=== PATIENT | female | born 1955 | race African-American/Black ===

== ENCOUNTER 2017-09-14 13:36 | Inpatient (IN) | payer SELFPAY ==
[2017-09-14 14:12] LABS: Bilirubin Negative (Negative); Blood, Urine Negative (Negative); Clarity CLEAR (Clear); Glucose, Urine (Dipstick) Negative (Negative); Leukocyte Small (Negative); Nitrite Negative (Negative); Protein, Urine (Dipstick) Negative (Neg-Trace); Specific Gravity, Urine 1.011 (1.002-1.036); pH, Urine 5.5 (5.0-9.0)
[2017-09-14 14:14] LABS: Bacteria/HPF None Seen HPF (None Seen); Hyaline Casts/LPF 4-6 HYALINE CAST LPF (0-3 Hyaline); Pathc Cast-AUWi Flag 1.16 (0-2.49); RBC/HPF 0-3 HPF (0-3); Squamous Epithelial 0-3 HPF (0-3)
[2017-09-14 14:23] LABS: Medtox Reader # READER 1
[2017-09-14 14:24] LABS: Amphetamine Not Detected (NotDetected); Barbiturates Screen Not Detected (NotDetected); Benzodiazepine Screen Not Detected (NotDetected); Cocaine Metabolite Screen Not Detected (NotDetected); Medtox Control Line Valid? VALID (VALID); Methadone Not Detected (NotDetected); Methamphetamine Not Detected (NotDetected); Opiate Screen Not Detected (NotDetected); Oxycodone Screen Not Detected (NotDetected); Phencyclidine (PCP) Not Detected (NotDetected); THC/Cannabinoid Screen Detected (NotDetected); Tricyclic Screen Not Detected (NotDetected)
[2017-09-14 14:48] LABS: #Basophils 0.1 thou/uL (0.0-0.2); #Eosinphils 0.2 thou/uL (0.0-0.7); #Lymphocytes 2.2 thou/uL (1.20-3.40); #Monocytes 0.6 thou/uL (0.11-0.59); #Neutrophils 4.5 thou/uL (1.40-6.50); %Basophils 1.1 % (0.0-1.0); %Eosinophils 2.7 % (0.0-10.0); %Lymphocytes 28.9 % (21.0-51.0); %Monocytes 7.4 % (0.0-10.0); %Neutrophils 60.1 % (42.0-75.0); Hemoglobin 16.3 g/dL (12.0-16.0); Mean Corpuscular HGB CONC 33.8 g/dL (32.0-36.0); Mean Corpuscular Volume 91.8 fL (78.0-98.0); Mean Platelet Volume 9.1 fL (7.4-10.4); Platelet Count 183 thou/uL (130-400); RBC Distribution Width 13.8 % (11.5-14.5); Red Blood Cell (RBC) Count 5.24 mill/uL (4.20-5.40); White Blood Cell (WBC) Count 7.5 thou/uL (4.8-10.8)
[2017-09-14 15:09] LABS: Acetaminophen Less than 6.0 mcg/mL (10.0-30.0); Alcohol Less than 10 mg/dL (Less than 10); Salicylate Less than 8.0 mg/dL (15.0-30.0)
[2017-09-14 15:15] LABS: ALT (SGPT) 66 U/L (8-55); AST (SGOT) 76 U/L (5-34); Alkaline Phosphatase 79 U/L (40-150); Anion Gap 15 mmol/L (10-20); BUN (Urea Nitrogen) 15 mg/dL (9.8-20.1); Calc. Creatinine Clearance 0 mL/min (70-130); Calcium 9.7 mg/dL (7.8-10.44); Carbon Dioxide 20 mmol/L (23-31); Chloride 107 mmol/L (98-107); Estimated GFR-MDRD 44; Globulin 5.6 g/dL (2.4-3.5); Glucose 76 mg/dL (80-115); Potassium 3.7 mmol/L (3.5-5.1); Protein, Total 9.6 g/dL (6.0-8.3); Sodium 138 mmol/L (136-145)
[2017-09-14] MEDS ORDERED: Diltiazem HCl 125 MG, Admixture Fee 1 EACH in Sodium Chloride 0.9% 100 ML IVPB SCH ×2 (16:15→17:45)
[2017-09-14 17:24] LABS: CKMB 3.6 ng/mL (0-6.6); Troponin I 0.052 ng/mL (< 0.028)
[2017-09-14 18:06] LABS: CKMB 3.5 ng/mL (0-6.6); Troponin I 0.064 ng/mL (< 0.028)
[2017-09-14 20:46] LABS: Troponin I 0.071 ng/mL (< 0.028)
[2017-09-14] MEDS ORDERED: Milk Of Magnesia 30 ML UDCUP PO PRN (22:09)
[2017-09-14] MEDS ORDERED: Acetaminophen 325 MG TAB PO PRN (22:09)
[2017-09-14 22:28] VITALS: BMI 31.9
[2017-09-14] MEDS ORDERED: Enoxaparin Sodium 100 MG/ML SYRINGE SC SCH (22:45)
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
[2017-09-15 05:54] LABS: Anion Gap 12 mmol/L (10-20); BUN (Urea Nitrogen) 17 mg/dL (9.8-20.1); Calc. Creatinine Clearance 75 mL/min (70-130); Calcium 8.6 mg/dL (7.8-10.44); Carbon Dioxide 23 mmol/L (23-31); Chloride 109 mmol/L (98-107); Estimated GFR-MDRD 62; Glucose 103 mg/dL (80-115); Potassium 3.4 mmol/L (3.5-5.1); Sodium 141 mmol/L (136-145)
[2017-09-15] MEDS: Diltiazem 125 MG in Sodium Chloride 0.9% 100 ML IVPB SCH ×2 (06:01→19:53)
[2017-09-15 06:19] LABS: Band 1 % (5-11); Eosinophils 7 % (0-10); Hemoglobin 13.9 g/dL (12.0-16.0); Lymphocytes 43 % (21-51); MDiff Complete? YES; Mean Corpuscular HGB CONC 33.7 g/dL (32.0-36.0); Mean Corpuscular Hemoglobin 30.9 pg (27.0-31.0); Mean Corpuscular Volume 91.5 fL (78.0-98.0); Mean Platelet Volume 10.1 fL (7.4-10.4); Monocytes 10 % (0-10); Neutrophil 39 % (42-75); PLT Morphology Comment Appears Adequate; Platelet Count 149 thou/uL (130-400); RBC Distribution Width 13.7 % (11.5-14.5); RBC Morphology Normal; White Blood Cell (WBC) Count 5.7 thou/uL (4.8-10.8)
[2017-09-15] MEDS: Famotidine 20 MG TAB PO SCH ×2 (08:09→19:52)
[2017-09-15] MEDS: Enoxaparin Sodium 100 MG/ML SYRINGE SC SCH ×2 (08:10→19:52)
[2017-09-15] MEDS ORDERED: Enoxaparin Sodium 80 MG/0.8 ML SYRINGE SC SCH (09:00)
--- NOTE | 2017-09-15 09:30 | PDOC.PN ---
- Subjective Encounter Start Date: 09/15/17 Encounter Start Time: 09:28 Ms. Herrera was seen in follow-up of Afutter, and depression and rash. She says she feels a little better. No new complaints. - Objective Resuscitation Status: Resuscitation Status FULL:Full Resuscitation MAR Reviewed: Yes Vital Signs & Weight: Vital Signs (12 hours) Temp Pulse Resp BP Pulse Ox 09/15/17 08:03 98.5 F 107 H 16 146/86 H 96 09/15/17 08:00 98.5 F 107 H 16 98 09/15/17 04:18 98.7 F 100 18 103/83 96 09/15/17 00:14 97.5 F L 78 17 117/74 96 09/14/17 23:48 109 H 09/14/17 21:50 97.5 F L 78 17 131/90 98 Weight Weight 192 lb I&O: 09/14/17 09/15/17 09/16/17 06:59 06:59 06:59 Intake Total 82 Balance 82 Result Diagrams: 09/15/17 04:56 09/15/17 04:55 Phys Exam - Physical Examination HEENT: PERRLA Respiratory: no wheezing, no rales, no rhonchi, clear to auscultation bilateral Cardiovascular: RRR, no significant murmur, no rub Gastrointestinal: soft, non-tender, positive bowel sounds Musculoskeletal: edema present + trace pedal edema of the lower extremities, and a scaly raised rash Neurological: non-focal Dx/Plan (1) Atrial flutter Code(s): I48.92 - UNSPECIFIED ATRIAL FLUTTER Status: Acute (2) Dermatitis Code(s): L30.9 - DERMATITIS, UNSPECIFIED Status: Acute (3) Depression with suicidal ideation Code(s): F32.9 - MAJOR DEPRESSIVE DISORDER, SINGLE EPISODE, UNSPECIFIED; R45.851 - SUICIDAL IDEATIONS Status: Acute - Plan * Atrial flutter- she continues with a variable heart rate on the Cardizem drip * Echo is pending as well as Cardiology evaluation * Continue Lovenox * Dermatitis- ? etiology- rudolph try a steroid ointment/cream- and will need outpatient evaluation * Depression with suicidal ideation- will continue suicide precautions, Zoloft, and will need [facility] evaluation at discharge.
[2017-09-15] MEDS ORDERED: Potassium Chloride 20 MEQ TAB PO SCH (09:45)
--- NOTE | 2017-09-15 11:27 | CON ---
DATE OF SERVICE: 09/15/2017 REASON FOR CONSULTATION: Atrial flutter. HISTORY OF PRESENT ILLNESS: Mrs. Herrera is a pleasant 62-year-old female who comes to the hospital for feeling lightheaded. She has been very depressed for the last 6-9 months. She u sed to have a house, but her son who own the house suddenly sold it and she was left without a place to live, went to live with her sister who eventually got evicted. She then went to live with her bro ther who left her when she was a child, so she is having a lot of problems there, so she feels suicid al. She is actually planning on taking her life. She does not have plan just yet, but she really do es want to live. She has also been feeling lightheaded for the last few weeks and was found to be in atrial flutter with 2:1 AV block, heart rate in the 150s. She was started on diltiazem drip and is better rate controlled now. She is also on full anticoagulation with subcu Lovenox. PAST MEDICAL HISTORY: None. PAST SURGICAL HISTORY: None. OUTPATIENT MEDICATIONS: None. ALLERGIES: No known drug allergies. SOCIAL HISTORY: Smokes half pack a day for the last 30 years. Drinks about 1-2 beers a day, single with 2 kids. FAMILY HISTORY: Diabetes and heart failure in mother. REVIEW OF SYSTEMS: A 12-point review of systems was done and is negative unless stated in history of present illness or below. She has generalized rash that she has been dealing with for the last few months as well. PHYSICAL EXAMINATION: VITAL SIGNS: Temperature 98.5, pulse 107, respiration rate 16, satting 96% on room air, blood pressu re 146/86. GENERAL: Awake, alert, and oriented x3, in no distress. HEENT: Normocephalic, atraumatic. NECK: Supple. LUNGS: Clear. CARDIOVASCULAR: S1, S2, irregularly irregular, heart rate in 90s-100s. ABDOMEN: Soft, positive bowel sounds. EXTREMITIES: 1+ edema. SKIN: Warm and dry. There are several skin lesions. Scaly type lesions. LABORATORY WORK: Reviewed. CBC is unremarkable. Her hemoglobin was 16 on arrival, 13 now. Telephone Services Sales Representative ry with normal sodium and potassium, and her potassium since dropped to 3.4. Her creatinine went fro m 1.2-1.09, GFR of 62. Troponin was indeterminate range 0.05, 0.06, and 0.07. Albumin of 4.0. TSH is normal. UA with trace ketones, small amount of leukocyte esterase, white cells and a urine drug screen was positive for marijuana use. ASSESSMENT AND PLAN: 1. Atrial flutter. 2. Skin rash. 3. Homelessness. 4. Suicidal ideation. 5. Depression. PLAN: CHADS-VASc score is actually 0 currently, this would favor aspirin for stroke prophylaxis. I would most likely prefer that she undergo more conservative approach given her limitations and care t hat she will have once she leaves the hospital. We will plan on doing a NICOLE cardioversion. Hopefull y, she will not have any blood clots that will require blood thinning and if there was no thrombus an d we were able to give her a shock, I would favor just keeping her on aspirin afterwards as I think t here is a high possibility that she may use the blood thinners as part of her suicidal plan. I am al so concerned that she may use the antiarrhythmics for the same reason. I would probably just keep he r on a calcium channel edgar or just beta edgar once she is cardioverted back to sinus rhythm. O therwise, continue rate control for now. Continue full anticoagulation with Lovenox for now. Thank you for letting us participate in the care of your patient. We will follow.
[2017-09-15] MEDS: diphenhydrAMINE 25 MG CAP PO PRN ×2 (19:52)
[2017-09-16] MEDS: Aspirin 81 mg Enteric Coated Tablet PO SCH (08:56)
[2017-09-16] MEDS: Famotidine 20 MG TAB PO SCH ×2 (08:56→20:58)
[2017-09-16] MEDS: Enoxaparin Sodium 100 MG/ML SYRINGE SC SCH ×2 (08:57→20:57)
[2017-09-16] MEDS: Diltiazem 125 MG in Sodium Chloride 0.9% 100 ML IVPB SCH ×2 (09:02→23:21)
--- NOTE | 2017-09-16 09:56 | PDOC.PN ---
- Subjective Encounter Start Date: 09/16/17 Encounter Start Time: 09:54 Subjective: feeling better, itching all over, feeling sad but denies suicidality - Objective Resuscitation Status: Resuscitation Status FULL:Full Resuscitation MAR Reviewed: Yes Vital Signs & Weight: Vital Signs (12 hours) Temp Pulse Resp BP Pulse Ox 09/16/17 08:40 99.1 F 87 17 166/81 H 97 09/16/17 03:40 98.4 F 84 20 168/90 H 95 09/15/17 22:40 98.3 F 84 20 160/89 H 96 Weight Weight 191 lb 14.4 oz I&O: 09/15/17 09/16/17 09/17/17 06:59 06:59 06:59 Intake Total 82 580 Output Total 1450 Balance 82 -870 Result Diagrams: 09/15/17 04:56 09/15/17 04:55 Phys Exam - Physical Examination HEENT: PERRLA, moist MMs, sclera anicteric, TM's clear, oral pharynx no lesions , 2+ tonsils Neck: no nodes, no JVD, supple, full ROM Respiratory: no wheezing, no rales, no rhonchi, wheezing present, clear to auscultation bilateral Cardiovascular: RRR, no significant murmur, no rub, gallop, irregular Gastrointestinal: soft, non-tender, no distention, positive bowel sounds Musculoskeletal: no edema, pulses present, edema present Deviation from normal: rashes all over, burrows in the finger web spaces? Dx/Plan (1) Atrial flutter Code(s): I48.92 - UNSPECIFIED ATRIAL FLUTTER Status: Acute Comment: Plans for Cardioversion after NICOLE and if there are no blood clots. Continue Cardizem and full AC with Lovenox for now. At DC if cardioverted plan is to DC patient with Aspirin and CCB or BB. As per Crds would like to avoid any AC or anti arythmics due to patients complains of feeling suicidal. (2) Depression with suicidal ideation Code(s): F32.9 - MAJOR DEPRESSIVE DISORDER, SINGLE EPISODE, UNSPECIFIED; R45.851 - SUICIDAL IDEATIONS Status: Acute Comment: continue Zoloft, [facility] consult before DC. Situational depression. Sitter at the bed side (3) Dermatitis Code(s): L30.9 - DERMATITIS, UNSPECIFIED Status: Acute Comment: Continue steroid cream (4) Scabies Status: Acute - Plan cont current plan of care, plan discussed w/ family, DVT proph w/lovenox, DVT proph w/SCDs * .
[2017-09-16] MEDS ORDERED: Permethrin 5% Cream 60 GM TUBE TOP SCH (14:00)
--- NOTE | 2017-09-16 20:18 | PDOC.CTH ---
Cardiology Progress Note - Subjective No new issues. Rash thought to be scabies. - Objective Vital Signs Temp Pulse Resp BP Pulse Ox 09/16/17 15:45 98.7 F 84 16 146/91 H 98 09/16/17 12:25 97.9 F 91 18 140/98 H 98 09/16/17 08:40 99.1 F 87 17 166/81 H 97 Weight 191 lb 14.4 oz 09/15/17 09/16/17 09/17/17 06:59 06:59 06:59 Intake Total 82 580 Output Total 1450 Balance 82 -870 - Physical Examination General/Neuro: alert & oriented x3, NAD Neck: no JVD present Lungs: CTA, unlabored respirations Heart: RRR Abdomen: NT/ND Extremities: other: (no edema.) - Telemetry Telemetry Rhythm: NSR - Labs Result Diagrams: 09/15/17 04:56 09/15/17 04:55 Troponin/CKMB CK-MB (CK-2) 3.5 ng/mL (0-6.6) 09/14/17 17:31 Troponin I 0.071 ng/mL (< 0.028) H 09/14/17 20:14 - Assessment/Plan 1. Atrial flutter. 2. Suicidal ideations, currently feeling better. 3. Homelesness. 4. Hypokalemia PLAN: - NICOLE/Cardioversion tomorrow. - Continue full anticoagulation - Will switch diltiazem to PO after DCCV. - Aspirin for stroke prophylaxis if no blood clot seen as she has a low CHADS II score and her SI makes me concerned she may try to harm herself with these medications. - Jennifer Clark
[2017-09-17] MEDS: Famotidine 20 MG TAB PO SCH ×2 (10:47→21:01)
[2017-09-17] MEDS: Enoxaparin Sodium 100 MG/ML SYRINGE SC SCH ×2 (10:48→21:01)
[2017-09-17] MEDS: Aspirin 81 mg Enteric Coated Tablet PO SCH (10:48)
[2017-09-17] MEDS: Diltiazem 125 MG in Sodium Chloride 0.9% 100 ML IVPB SCH (10:51)
[2017-09-17] MEDS ORDERED: PROPOFOL 200 MG/20 ML VIAL ONE (11:37)
[2017-09-17] MEDS ORDERED: PROPOFOL 20 ML ONE ×2 (12:45→12:46)
--- NOTE | 2017-09-17 17:09 | PDOC.PN ---
- Subjective Encounter Start Date: 09/17/17 (f/u SI) Encounter Start Time: 17:08 Subjective: pt c/o itching - improved, but still present. Denies cp/sob/n/v - Objective Resuscitation Status: Resuscitation Status FULL:Full Resuscitation Vital Signs & Weight: Vital Signs (12 hours) Temp Pulse Resp BP Pulse Ox 09/17/17 11:00 97 F L 105 H 16 140/80 09/17/17 08:00 99.3 F 127 H 18 165/104 H 99 Weight Weight 187 lb 1.6 oz I&O: 09/16/17 09/17/17 09/18/17 06:59 06:59 06:59 Intake Total 580 600 Output Total 1450 1500 Balance -870 -900 Result Diagrams: 09/15/17 04:56 09/15/17 04:55 EKG Reviewed by me: Yes (now sinus 110's, was a flutter/fib 80-100's) Phys Exam - Physical Examination Constitutional: NAD Respiratory: no wheezing, no rales, no rhonchi, clear to auscultation bilateral Cardiovascular: RRR, no significant murmur Gastrointestinal: soft, non-tender, no distention, positive bowel sounds Musculoskeletal: no edema Neurological: non-focal, moves all 4 limbs Psychiatric: normal affect Deviation from normal: hyperpigmented plaques with crusting scattered all over Dx/Plan (1) Atrial flutter Code(s): I48.92 - UNSPECIFIED ATRIAL FLUTTER Status: Acute (2) Depression with suicidal ideation Code(s): F32.9 - MAJOR DEPRESSIVE DISORDER, SINGLE EPISODE, UNSPECIFIED; R45.851 - SUICIDAL IDEATIONS Status: Acute (3) Dermatitis Code(s): L30.9 - DERMATITIS, UNSPECIFIED Status: Acute (4) Scabies Status: Acute - Plan * Appreciate Cards consult - now s/p cardioversion in sinus rhythm on diltiazem gtt * Rash - subacute with significant plaques all over - pt is s/p permethrin last night. Will consult ID for suggestions on other tx. Change benadryl to q6h prn itching * SI - needs MR eval when cleared by Cardiology - off diltiazem with plan for anticoagulation. Low dose SSRI started at admission - will continue this. * * dvt prophy - on full dose lovenox * gi prophy - not indicated * code status full * * reviewed plan of care with patient, no questions or further needs at end of eval..
[2017-09-17 18:20] LABS: Anion Gap 12 mmol/L (10-20); BUN (Urea Nitrogen) 8 mg/dL (9.8-20.1); Calc. Creatinine Clearance 78 mL/min (70-130); Calcium 9.1 mg/dL (7.8-10.44); Carbon Dioxide 24 mmol/L (23-31); Chloride 104 mmol/L (98-107); Estimated GFR-MDRD 67; Potassium 3.8 mmol/L (3.5-5.1); Sodium 136 mmol/L (136-145)
[2017-09-17] MEDS: diphenhydrAMINE 25 MG CAP PO PRN (18:20)
[2017-09-17 18:54] LABS: Glucose 86 mg/dL (80-115)
--- NOTE | 2017-09-17 23:32 | ECHO ---
DATE OF SERVICE: 09/17/2017. PREPROCEDURE DIAGNOSIS: Atrial flutter. The Anesthesiology department provided with sedation for the patient. Please see their notes for det ails. After adequate sedation was achieved, the transesophageal probe was inserted into the mouth and into the esophagus without problems. Multiplanar views were then obtained. Left ventricle appears to be normal size with normal wall thickness. Systolic function is normal, es timated EF of 50-55% without regional wall motion abnormalities. Left atrium is mildly dilated. The left atrial appendage is large wedge shaped appendage with normal flow velocities. There is no evidence of mass or thrombus within the appendage. Right atrium is mildly dilated. No mass or thrombus. Right ventricle is structurally normal. There is normal size with normal RV systolic function. Interatrial septum appears to be intact by color Doppler. Aortic valve is mildly sclerotic, but opens well, no stenosis or regurgitation. Mitral valve is structurally normal. There is mild MR, no stenosis. Tricuspid valve structurally normal. There is mild TR, no stenosis. Pulmonary valve is structurally normal. There is no stenosis or regurgitation. Thoracic aorta is with grade II/V atherosclerotic disease. CONCLUSIONS: 1. Normal systolic function, EF of 50-55%. 2. Biatrial enlargement. 3. A wedge shaped large left atrial appendage with normal velocities and no evidence of mass or thro mbus. 4. Mild MR. 5. Mild TR.
--- NOTE | 2017-09-17 23:38 | OP ---
DATE OF SERVICE 09/17/2017. PREPROCEDURE DIAGNOSIS Atrial flutter. PROCEDURES PERFORMED Direct current synchronized cardioversion. The patient is a very pleasant 62-year-old -[place] female who comes to PACU for preparation of cardioversion. She had a NICOLE that showed no evidence of left atrial appendage thrombus with avelina l left atrial appendage velocities. We proceeded after adequate sedation was achieved. She received a single 100 joules synchronized shock successfully converting her from atrial flutter to sinus rhyth m at a rate of 70s. Patient tolerated procedure well. RECOMMENDATIONS: 1. Continue aspirin daily as she is a low risk for stroke a low RYDER score and the fact that she has suicidal ideations and she would not be prudent to give her a prescription for samples of anticoagul ants which she could use to harm herself. The risks outweighed the benefits at this point. 2. We will provide a prescription for diltiazem on discharge as well. 3. May discharge home from the cardiac perspective at any point.
[2017-09-18] MEDS: Diltiazem 125 MG in Sodium Chloride 0.9% 100 ML IVPB SCH (02:55)
[2017-09-18 06:01] LABS: Anion Gap 12 mmol/L (10-20); BUN (Urea Nitrogen) 8 mg/dL (9.8-20.1); Calc. Creatinine Clearance 87 mL/min (70-130); Calcium 8.7 mg/dL (7.8-10.44); Carbon Dioxide 25 mmol/L (23-31); Chloride 104 mmol/L (98-107); Estimated GFR-MDRD 76; Glucose 84 mg/dL (80-115); Potassium 3.5 mmol/L (3.5-5.1); Sodium 137 mmol/L (136-145)
[2017-09-18 06:54] LABS: Hemoglobin 14.2 g/dL (12.0-16.0); Lymphocytes 50 % (21-51); MDiff Complete? YES; Mean Corpuscular HGB CONC 34.3 g/dL (32.0-36.0); Mean Corpuscular Hemoglobin 31.4 pg (27.0-31.0); Mean Corpuscular Volume 91.4 fL (78.0-98.0); Mean Platelet Volume 9.6 fL (7.4-10.4); Monocytes 4 % (0-10); Neutrophil 46 % (42-75); PLT Morphology Comment Appears Adequate; Platelet Count 139 thou/uL (130-400); RBC Distribution Width 13.5 % (11.5-14.5); RBC Morphology Normal; Red Blood Cell (RBC) Count 4.51 mill/uL (4.20-5.40); White Blood Cell (WBC) Count 4.7 thou/uL (4.8-10.8)
[2017-09-18] MEDS: diphenhydrAMINE 25 MG CAP PO PRN ×2 (07:33→14:49)
[2017-09-18] MEDS: Enoxaparin Sodium 100 MG/ML SYRINGE SC SCH (08:52)
[2017-09-18] MEDS: Aspirin 81 mg Enteric Coated Tablet PO SCH (08:52)
--- NOTE | 2017-09-18 10:17 | PDOC.PN ---
- Subjective Encounter Start Date: 09/18/17 (f/u skin rash) Encounter Start Time: 10:15 Subjective: Pt c/o feeling more itchy and irritated about her skin. Denies any -: cp/n/v/sob and reports more energy when walking. - Objective Resuscitation Status: Resuscitation Status FULL:Full Resuscitation Vital Signs & Weight: Vital Signs (12 hours) Temp Pulse Resp BP Pulse Ox 09/18/17 03:31 99.5 F 84 14 134/79 96 Weight Weight 192 lb I&O: 09/17/17 09/18/17 09/19/17 06:59 06:59 06:59 Intake Total 600 1301 Output Total 1500 1250 Balance -900 51 Result Diagrams: 09/18/17 05:26 09/18/17 05:26 EKG Reviewed by me: Yes (tele - sinus 80-90's since cardioversion) Phys Exam - Physical Examination Constitutional: NAD Respiratory: no wheezing, no rales, no rhonchi, clear to auscultation bilateral Cardiovascular: RRR, no significant murmur Gastrointestinal: soft, non-tender, no distention, positive bowel sounds Musculoskeletal: no edema Neurological: non-focal Psychiatric: normal affect Deviation from normal: multiple plaques along skin with hyperpigmentation, some areas -: of erythema a few mm surrounding plaques on right leg Dx/Plan (1) Atrial flutter Code(s): I48.92 - UNSPECIFIED ATRIAL FLUTTER Status: Resolved (2) Depression with suicidal ideation Code(s): F32.9 - MAJOR DEPRESSIVE DISORDER, SINGLE EPISODE, UNSPECIFIED; R45.851 - SUICIDAL IDEATIONS Status: Acute (3) Dermatitis Code(s): L30.9 - DERMATITIS, UNSPECIFIED Status: Acute (4) Scabies Status: Acute - Plan * * Appreciate Cards consult - cleared for discharge. Will change diltiazem to oral, and d/c lovenox as oral anticoagulation is not recommended by cardiology due to risk of self-harm. Continue low dose aspirin for stroke risk reduction * * Rash - subacute with significant plaques all over - pt is s/p permethrin 2 nights ago. Start keflex for concern of secondary infection. Continue topical triamcinolone and prn benadryl. ID consult placed yesterday. * * SI - cleraed for eval by [facility] * dvt prophy - ambulatory * gi prophy - not indicated * code status full * * reviewed plan of care with patient, no questions or further needs at end of eval. DIsposition pending [facility] evaluation. Will need close f/u with PCP as an outpatient for management of rash.
[2017-09-18] MEDS ORDERED: Eucerin (Mineral Oil/Petrolatum,White) 30 gm Jar TOP PRN (10:34)
[2017-09-18] MEDS ORDERED: Cephalexin 250 MG CAP PO SCH ×2 (11:00→21:00)
[2017-09-18 11:54] VITALS: TEMP 98.4
[2017-09-18 16:35] VITALS: BP 130/78
[2017-09-18 19:33] LABS: HIV (1/2) Antibody/Antigen Non-Reactive (NonReactive); HIV 1/2 INDEX 0.07 S/CO (<1.00)
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
[2017-09-19 00:23] LABS: Hep C IgG Ab Reflex HepC Qnt (NonReactive); Hep C Index 13.67 S/CO (0-0.79)
--- NOTE | 2017-09-19 01:50 | DIS ---
DATE OF ADMISSION: 09/14/2017 DATE OF DISCHARGE: 09/18/2017 CONSULTANTS: 1. Dr. Rutherford of Cardiology. 2. Dr. Nichols of Infectious Disease. 3. [facility]. MEDICATIONS: Reconciled at discharge. DISCONTINUED MEDICATIONS: Aspirin 325 mg. The patient was taking this as needed. NEW MEDICATIONS: 1. Prednisone 20 mg tablets 1 tablet daily. Prescription provided for 14 days. We will need followup to determine if this needs to be continued. 2. Zoloft 50 mg p.o. daily. Prescription provided for 30 tablets. 3. Cardizem-CD 240 mg 1 tablet daily. Prescription provided for 30 tablets. 4. Keflex 500 mg b.i.d. for 7 days. Prescription provided for 14 tablets 5. Aspirin 81 mg daily. 6. Tylenol 325 mg 2 tablets every 6 hours as needed. 7. Eucerin with 0.1% triacinolone - to apply to areas of rash twice daily for no more than a week. FINAL DIAGNOSES: 1. Atrial flutter/fibrillation, status post cardioversion. 2. Suicidal ideation, resolved. 3. Generalized rash suspicious for lichen planus. 4. Depressed mood. FOLLOW UP: 1. [facility] - monitoring of rash, mood symptoms and to refill medications 2. Dr. Nichols for monitoring of rash 3. Dr. Rutherford for monitoring of heart HISTORY OF PRESENT ILLNESS: Ms. Herrera is a 62-year-old female with no significant past medical history who has been feeling depressed and contemplating suicide. She was feeling dizzy and lightheaded, having palpitations and some shortness of breath and presented to the emergency room where she was found to be in atrial flutter with a heart rate in the 120s and 130s. She has also had rash that had been ongoing for at least a few months. HOSPITAL COURSE: Atrial flutter. The patient was evaluated by Cardiology and was started on full dose Lovenox and diltiazem drip. She underwent cardioversion on Sep 17, maintained on the diltiazem drip overnight and she was transitioned to oral diltiazem today while maintaining sinus rhythm. She will be discharged on this medication. She will also be discharged on low dose aspirin for stroke risk reduction. Given the suicidal ideation at admission, and her low CHADs2-VASC score, the risk of oral anticoagulation outweighs the benefits at this time. For her rash, the working diagnosis at admission was scabies and patient was treated with permethrin. She has had significant itching as well as plaque formation over the past few months. Infectious Disease was consulted on the day of discharge with a presumptive diagnosis of lichen planus and recommendation to start steroid therapy. She received the first dose here and she will follow up in the outpatient setting with [facility] to determine the duration of steroids, obtain a biopsy, and determine if any other treatment is indicated. There is some erythema around the plaques on her right lower extremity and she will be started on Keflex for 1 week. For suicidal ideation, patient's mood has been improving while she was here. She denies being actively suicidal. She was started on Zoloft due to the ongoing mood symptoms at 50 mg once daily. She was evaluated on day of discharge by [facility], safety plan was established, and resources were provided for her to follow up in the outpatient setting. There is no indication by [facility] evaluation for inpatient psychiatric hospitalization. The patient is overall feeling improved and meets criteria for discharge to home. PHYSICAL EXAMINATION: Please see daily note on chart. [facility] FINDINGS AND TEST RESULTS: 1. CBC today 4.7, 14.2, 41.3, 139. 2. Chemistry 137, 3.5, 104, 25, 8, 0.91, 84. 3. Troponin 0.064 and 0.071. 4. TSH 2.01. 5. Urinalysis had small leukocyte esterase, 7-10 white blood cells, 4-6 hyaline casts. 6. Urine drug screen positive for cannabinoids. Negative for salicylates, Tylenol and alcohol. 7. Echocardiogram performed on 09/15/2017 showed an EF of 60-65%, mild concentric LVH, atrial flutter, moderately dilated left atrium, moderately enlarged right atrium, moderate MR and TR, and a small pericardial effusion without tamponade. DIET: Regular. ACTIVITY: As tolerated. CODE STATUS: FULL. I reviewed with the patient this hospitalization, treatment for each condition including her heart and risk reduction for stroke, skin rash, presumptive diagnosis and treatment with the steroids and antibiotics, and mood and the initiation of Zoloft which she would like to maintain. We discussed the importance of followup as well as the return for care precautions and she demonstrates understanding. Total time coordinating discharge is 35 minutes. DAMASO
[2017-09-19] MEDS ORDERED: predniSONE 20 MG TAB PO SCH (08:00)
== END 2017-09-18 19:23 | disposition home or self-care (01) | DRG 309 ==
LOC: ERS 13:36 → IMCU/EMU 21:46 → 2NO 09-15 20:45
PROVIDERS: ADMIT Internal Medicine; ATTEND Internal Medicine
PROC: 5A2204Z Restoration of Cardiac Rhythm, Single (ICD-10-PCS; principal; 2017-09-17)
PROC: B246ZZ4 Ultrasonography of Right and Left Heart, Transesophageal (ICD-10-PCS; 2017-09-17)
DX: I48.92 Unspecified atrial flutter (principal); R45.851 Suicidal ideations; F17.210 Nicotine dependence, cigarettes, uncomplicated; R21 Rash and other nonspecific skin eruption; F32.9 Major depressive disorder, single episode, unspecified; E87.6 Hypokalemia; B86 Scabies; Z83.3 Family history of diabetes mellitus
CPT/HCPCS: 36415; 80048; 80053; 80306; 80307; 81003; 81015; 82553; 84443; 84484; 85025; 86803; 87389; 87522; 92960; 93005; 93306; 93312; 96361; 96365; 96366; 96376; J1650; J2704; J3490; J7050

== ENCOUNTER 2021-11-10 09:31 | Outpatient (CLI) | payer OTHER | END 2021-11-10 09:32 | disposition home or self-care (01) | LOC: BICMAMMO 09:31 | PROVIDERS: ATTEND Physician Assistant | DX: R92.8 Other abnormal and inconclusive findings on diagnostic imaging of breast (principal) | CPT/HCPCS: 77065; G0279 ==

== ENCOUNTER 2024-02-11 10:32 | Emergency (ER) | payer OTHER ==
[2024-02-11] MEDS ORDERED: HYDROcodone/Acetaminophen 10/325 mg Tablet ONE (11:02)
[2024-02-11] MEDS ORDERED: KETAMINE 100 MG/ML (5ML VIAL) ONE (12:57)
== END 2024-02-11 15:11 | disposition home or self-care (01) ==
LOC: ERS 10:32
DX: S43.004A Unspecified dislocation of right shoulder joint, initial encounter (principal); I48.91 Unspecified atrial fibrillation; F17.210 Nicotine dependence, cigarettes, uncomplicated; W01.0XXA Fall on same level from slipping, tripping and stumbling without subsequent striking against object, initial encounter; Y92.69 Other specified industrial and construction area as the place of occurrence of the external cause
CPT/HCPCS: 23650; 99152